=== PATIENT | female | born 1960 ===

== ENCOUNTER 2018-07-19 10:44 | Outpatient (CLI) | payer BC, OTHER ==
--- NOTE | 2018-07-19 11:43 | BD ---
BONE DENSITOMETRY USING DEXA: Date: 07/19/18 HISTORY: Postmenopausal screening for osteoporosis. FINDINGS: Lumbar Spine: BMD (g/cm2) L1 0.967 T-Score: -0.2 Z-Score: 0.8 L2 1.106 T-Score: 0.7 Z-Score: 1.8 L3 1.124 T-Score: 0.4 Z-Score: 1.5 L4 1.055 T-Score: -0.1 Z-Score: 1.1 L1-L4 1.067 T-Score: 0.2 Z-Score: 1.3 Femoral Neck: 0.797 T-Score: -0.5 Z-Score: 0.6 Total Femur: 0.956 T-Score: 0.1 Z-Score: 0.8 IMPRESSION: Normal bone mineral density. No evidence of osteopenia/osteoporosis. POS: [facility]
--- NOTE | 2018-08-07 13:54 | MMO ---
Bilateral MAMMO Bilat Screen [facility]. CLINICAL HISTORY: Patient is 58 years old and is seen for screening. The patient has no family history of breast cancer. The patient has no personal history of cancer. VIEWS: The views performed were: bilateral craniocaudal with tomosynthesis and bilateral mediolateral oblique with tomosynthesis. FILMS COMPARED: The present examination has been compared to prior imaging studies performed at [facility] on 08/13/2008, 09/06/2009, 11/21/2010 and 06/27/2012. MAMMOGRAM FINDINGS: There are scattered fibroglandular densities. There are no suspicious masses, suspicious calcifications, or new areas of architectural distortion. IMPRESSION: THERE IS NO MAMMOGRAPHIC EVIDENCE OF MALIGNANCY. A ROUTINE FOLLOW-UP MAMMOGRAM IN 1 YEAR IS RECOMMENDED. THE RESULTS OF THIS EXAM WERE SENT TO THE PATIENT. ACR BI-RADS Category 1 - Negative MAMMOGRAPHY NOTE: 1. A negative mammogram report should not delay a biopsy if a dominant of clinically suspicious mass is present. 2. Approximately 10% to 15% of breast cancers are not detected by mammography. 3. Adenosis and dense breasts may obscure an underlying neoplasm.
== END 2018-07-19 10:45 | disposition home or self-care (01) ==
LOC: BICMAMMO 10:44
DX: Z12.31 Encounter for screening mammogram for malignant neoplasm of breast (principal); Z13.820 Encounter for screening for osteoporosis; Z78.0 Asymptomatic menopausal state
CPT/HCPCS: 77063; 77067; 77080

== ENCOUNTER 2023-05-22 | Outpatient (CLI) | payer BC | END 2023-05-22 08:56 | disposition home or self-care (01) | DX: Z12.31 Encounter for screening mammogram for malignant neoplasm of breast (principal) ==